=== PATIENT | male | born 1960 | race Caucasian/White ===

== ENCOUNTER 2016-07-26 07:48 | Emergency (ER) | payer OTHER ==
[2016-07-26] MEDS ORDERED: KETOROLAC TROMETHAMINE 30 MG/ML 1 ML VIAL ONE (08:45)
--- NOTE | 2016-07-26 08:56 | RAD ---
07/26/2016 8:50 AM CHEST - 2 VIEWS History: Left-sided chest pain after smoking methamphetamines this morning. Comparison: 12/05/2013 Findings: Two views of the chest are obtained. The lungs are clear with out effusion or pneumothorax. The cardiomediastinal silhouette is unremarkable.. The osseous structures are intact.. IMPRESSION: No acute intrathoracic process.
[2016-07-26 09:38] LABS: ABSOLUTE NEUTROPHIL COUNT 7.9 K/mm3 (1.8-7.7); BASO % 0.4 % (0.2-1.0); EOS % 0.3 % (0.9-2.9); HEMATOCRIT 36.9 % (32.0-52.0); IMM NEUT # 0.1 K/mm3 (0-0.2); IMM NEUT% 0.5 % (0-1); LYMPH # 1.6 (1.0-4.8); LYMPH % 15.2 % (15-45); MEAN CELL VOLUME 83.1 fl (80.0-94.0); MEAN CORPUSCULAR HGB CONC 32.5 g/dl (33.0-37.0); MEAN PLATELET VOLUME 10.4 fl (7.4-10.4); MONO # 0.9 (0.0-0.8); MONO % 8.2 % (4-12); NEUT % 75.4 % (43-75); PLATELET COUNT 160 K/mm3 (130-400); RED CELL DISTRIBUTION WIDTH 15.1 % (11.5-14.5)
[2016-07-26 09:49] LABS: ALB/GLOB RATIO 1.2 (>1.0); ALBUMIN 3.6 gm/dL (3.5-5.7)
== END 2016-07-26 12:07 | disposition home or self-care (01) ==
LOC: ED 07:48
DX: R07.9 Chest pain, unspecified (principal); I10 Essential (primary) hypertension; F17.210 Nicotine dependence, cigarettes, uncomplicated
CPT/HCPCS: 85025; 80053; 84484; 71020; 99284 ×2; 96374; 93005; J1885